=== PATIENT | male | born 2000 | race Caucasian/White ===

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

== ENCOUNTER 2020-11-18 22:37 | Emergency (ER) | payer OTHER, SELFPAY ==
[~2020-11-18] VITALS: Ht 182.9 cm; Wt 111.8 kg
[2020-11-18 22:37] VITALS: BP 156/81
[~2020-11-18 22:37] MED LIST: IBUP100S58 PO; METH78GE TP; PRED5CON PO
--- OUTSIDE RECORDS SUMMARY | 2020-11-18 22:43 | CCD ---
Author Author [facility] Organization [facility] Address Unknown Phone Unavailable Care Team Providers Care Team Facilitator Name Role Phone Jorge A, E Katy DDS Unavailable Unavailable Dille, E Katy DDS Unavailable Unavailable Dille, E Katy DDS Unavailable Unavailable Dille, E Katy DDS Unavailable Unavailable Re-disclosure Warning The records that you are about to access may contain information from federally-assisted alcohol or drug abuse programs. If such information is present, then the following federally mandated warning applies: This information has been disclosed to you from records protected by federal confidentiality rules (42 CFR part 2). The federal rules prohibit you from making any further disclosure of this information unless further disclosure is expressly permitted by the written consent of the person to whom it pertains or as otherwise permitted by 42 CFR part 2. A general authorization for the release of medical or other information is NOT sufficient for this purpose. The Federal rules restrict any use of the information to criminally investigate or prosecute any alcohol or drug abuse patient.The records that you are about to access may contain highly sensitive health information, the redisclosure of which is protected by Article 27-F of the [place] State Public Health law. If you continue you may have access to information: Regarding HIV / AIDS; Provided by facilities licensed or operated by the [facility] Office of Mental Health; or Provided by the [facility] Office for People With Developmental Disabilities. If such information is present, then the following [facility] mandated warning applies: This information has been disclosed to you from confidential records which are protected by state law. State law prohibits you from making any further disclosure of this information without the specific written consent of the person to whom it pertains, or as otherwise permitted by law. Any unauthorized further disclosure in violation of state law may result in a fine or prison sentence or both. A general authorization for the release of medical or other information is NOT sufficient authorization for further disc losure. Encounters Encounter Providers Location Date Indications Data Source(s ) Outpatient Attender: Katy Jules [facility] 04/05/2020 12:02:07 A M EDT [facility] Outpatient Attender: Katy Jules [facility] 03/14/2020 12:02:37 A M EDT [facility] Insurance Providers Payer name Policy type / Coverage type Policy ID Covered democrat ID Covered democrat's relationship to olivarez Policy [place] Plan Information SELF PAY ONLY [id number] SP [id number] Self Pay P [id number] S [id number] MEDICAID [id number] SP [id number] FENG [id number] SP [id number] Self Pay P UNAVAILABLE S UNAVAILA BLE Managed Care [place] P UNAVAILABLE S UNAVAILABLE Medicaid S UNAVAILABLE S UNAVAILA BLE D Managed Care [place] ([employer]) O [id number] S [id number] Medicaid Dental O [id number]
--- NOTE | 2020-11-18 23:19 | REPVR ---
PROCEDURE INFORMATION: Exam: XR Chest, 2 Views Exam date and time: 11/18/2020 11:13 PM Age: 20 years old Clinical indication: Chest pain TECHNIQUE: Imaging protocol: XR of the chest Views: 2 views. COMPARISON: No relevant prior studies available. FINDINGS: Lungs: Unremarkable. No consolidation. Pleural spaces: Unremarkable. No pleural effusion. No pneumothorax. Heart/Mediastinum: Unremarkable. No cardiomegaly. Bones/joints: Unremarkable. Soft tissues: There are moderately generous overlying soft tissues. IMPRESSION: Negative chest. Electronically signed by: John Rivera On 11/18/2020 23:19:29 PM
[2020-11-19 00:11] LABS: ALBUMIN 3.9 GM/DL (3.2-5.2); ALT/SGPT 38 U/L (12-78); BILIRUBIN,DIRECT 0.1 MG/DL (0.0-0.2); BILIRUBIN,TOTAL 0.3 MG/DL (0.2-1.0); BLOOD UREA NITROGEN 15 MG/DL (7-18); CALCIUM LEVEL 8.7 MG/DL (8.5-10.1); CARBON DIOXIDE LEVEL 30 MEQ/L (21-32); CHLORIDE LEVEL 105 MEQ/L (98-107); CK-MB VALUE MASS 3.9 NG/ML (<3.6); CPK CREATINE PHOSPHOKINASE 250 U/L (39-308); CREATININE FOR GFR 1.31 MG/DL (0.70-1.30); GLUCOSE, FASTING 97 MG/DL (70-100); MB/CK RELATIVE INDEX 1.56 (< OR =4); POTASSIUM SERUM 3.9 MEQ/L (3.5-5.1); SODIUM LEVEL 141 MEQ/L (136-145); TOTAL PROTEIN 7.3 GM/DL (6.4-8.2); TROPONIN I < 0.02 NG/ML (< 0.10)
[2020-11-19 00:17] LABS: BASO % 0.4 % (0.0-1.0); EOS # 0.4 10^3/uL (0.0-0.5); EOS % 5.3 % (0.0-3.0); HEMATOCRIT 46.1 % (42.0-52.0); HEMOGLOBIN 16.2 g/dl (13.5-17.5); LYMPH # 2.6 10^3/uL (1.5-5.0); LYMPH % 33.4 % (24.0-44.0); MEAN CORPUSCULAR HEMOGLOBIN 28.7 pg (27.0-33.0); MEAN CORPUSCULAR HGB CONC 35.1 g/dl (32.0-36.5); MEAN CORPUSCULAR VOLUME 81.6 fl (80.0-96.0); MONO # 0.6 10^3/uL (0.0-0.8); MONO % 8.3 % (0.0-5.0); NEUTROPHILS % 51.7 % (36.0-66.0); PLATELET COUNT, AUTOMATED 213 10^3/uL (150-450); RED BLOOD COUNT 5.65 10^6/uL (4.30-6.10); WHITE BLOOD COUNT 7.7 10^3/uL (4.0-10.0)
[2020-11-19] MEDS ORDERED: NAPR-885 PO (01:40)
[2020-11-19] MEDS ORDERED: NAPROXEN 250 MG TAB PO ONE (01:45)
--- OUTSIDE RECORDS SUMMARY | 2020-11-19 02:07 | CCD ---
Author Author [facility] Organization [facility] Address Unknown Phone Unavailable Care Team Providers Care Back Hand Name Role Phone Jorge A, E Katy [...] is protected by Article 27-F of the [place] State Public Health law. If you continue you may have access to information: Regarding HIV / AIDS; Provided by facilities licensed or operated by the [facility] Office of Mental Health; or Provided by the [facility] Office for People With Developmental Disabilities. If such information is present, then the following [facility] mandated warning applies: This information has [...] law may result in a fine or care home sentence or both. A general authorization for the release of medical or other information is NOT sufficient authorization for further disc losure. Encounters Encounter Providers Location Date Indications Data Source(s ) Outpatient Attender: Katy Jules [facility] 04/05/2020 12:02:07 A M EDT [facility] Outpatient Attender: Katy Jules [facility] 03/14/2020 12:02:37 A M EDT [facility] Insurance Providers Payer name Policy type / Coverage type Policy ID Covered green party ID Covered green party's relationship to olivarez Policy [place] Plan Information SELF PAY ONLY [id number] SP [id number] Self Pay P [id number] S [id number] MEDICAID [id number] SP [id number] FENG [id number] SP [id number] Self Pay P UNAVAILABLE S UNAVAILA BLE Managed Care [place] P UNAVAILABLE S UNAVAILABLE Medicaid S UNAVAILABLE S UNAVAILA BLE D Managed Care [place] ([employer]) O [id number] S [id number] Medicaid Dental O [id number]
--- NOTE | 2020-11-19 19:31 | ECGEPIP ---
[facility] - ED Test Date: 2020-11-18 Pat Name: RAMIRO NICOLAS Department: Room: - Gender: Male [place]: : 2000 Requested By: CARRIE Zaidi Order Number: [id number] Reading MD: Matthew Anand Measurements Intervals [place] Rate: 82 P: 50 WV: 139 QRS: 8 QRSD: 93 T: -1 QT: 344 QTc: 402 Interpretive Statements SINUS RHYTHM WITH SINUS ARRHYTHMIA INCOMPLETE RIGHT BUNDLE BRANCH BLOCK MODERATE VOLTAGE CRITERIA FOR LVH, CONSIDER NORMAL VARIANT BENIGN EARLY REPOLARIZATION NO PRIORS FOR COMPARISON Electronically Signed on 11-19-2020 19:31:36 EST by Matthew Anand
== END 2020-11-19 02:53 | disposition home or self-care (01) ==
LOC: M ED 22:37
DX: R07.89 Other chest pain (principal); R06.02 Shortness of breath

== ENCOUNTER → 2020-11-22 | Outpatient (REF) | payer OTHER, SELFPAY ==
[~2020-11-22] MED LIST changes: +NAPR-885 PO
[2020-11-22 18:40] LABS: APPEARANCE, URINE CLEAR (CLEAR); BACTERIA, URINE AUTO NEGATIVE (NEGATIVE); BILIRUBIN, URINE AUTO NEGATIVE (NEGATIVE); BLOOD, URINE BLOOD NEGATIVE (NEGATIVE); COLOR, URINE YELLOW (YELLOW); GLUCOSE, URINE (UA) AUTO NEGATIVE (NEGATIVE); KETONE, URINE AUTO NEGATIVE (NEGATIVE); LEUKOCYTE ESTERASE, URINE AUTO NEGATIVE (NEGATIVE); NITRITE, URINE AUTO NEGATIVE (NEGATIVE); PROTEIN, URINE AUTO NEGATIVE (NEGATIVE); RBC, URINE AUTO 1 /HPF (0-3); SPECIFIC GRAVITY URINE AUTO 1.011 (1.002-1.035); SQUAMOUS EPITHELIAL CELL UR AU 0 /HPF (0-6); UROBILINOGEN, URINE AUTO 0.2 mg/dL (0.0-2.0); WBC, URINE AUTO 0 /HPF (0-3)
[2020-11-22 19:30] LABS: GLUCOSE, FASTING 89 MG/DL (70-100)
[2020-11-22 19:31] LABS: BLOOD UREA NITROGEN 11 MG/DL (7-18); CALCIUM LEVEL 9.1 MG/DL (8.5-10.1); CARBON DIOXIDE LEVEL 30 MEQ/L (21-32); CHLORIDE LEVEL 104 MEQ/L (98-107); CHOLESTEROL LEVEL 138 MG/DL (<200); CHOLESTEROL RISK RATIO 3.365 (<5); CK-MB VALUE MASS 2.6 NG/ML (<3.6); CPK CREATINE PHOSPHOKINASE 241 U/L (39-308); CREATININE FOR GFR 1.07 MG/DL (0.70-1.30); FREE T4 0.94 NG/DL (0.78-1.33); HDL CHOLESTEROL 41 MG/DL (>40); LDL CHOLESTEROL 43 MG/DL (<100); MB/CK RELATIVE INDEX 1.08 (< OR =4); NON-HDL-C 97 MG/DL; NT-PRO BNP 15 PG/ML (<125); POTASSIUM SERUM 4.2 MEQ/L (3.5-5.1); SODIUM LEVEL 139 MEQ/L (136-145); TRIGLYCERIDES LEVEL 268 MG/DL (<150); TROPONIN I < 0.02 NG/ML (< 0.10)
[2020-11-22 20:40] LABS: HEMOGLOBIN A1c 4.8 %
== END ==
LOC: M SFHCPLAZ 14:50
PROVIDERS: ATTEND Nurse Practitioner Family
DX: R07.89 Other chest pain (principal); I10 Essential (primary) hypertension; Z13.228 Encounter for screening for other metabolic disorders

== ENCOUNTER → 2020-11-26 | Outpatient (CLI) | payer OTHER, SELFPAY | LOC: M LABSMTC 13:57 | PROVIDERS: ATTEND Family Medicine | DX: Z20.822 Contact with and (suspected) exposure to COVID-19 (principal) | CPT/HCPCS: C9803; U0003 ==

== ENCOUNTER → 2020-12-03 | Outpatient (REF) | payer OTHER, SELFPAY | LOC: M SFHCPLAZ 10:53 | PROVIDERS: ATTEND Nurse Practitioner Family | DX: R07.89 Other chest pain (principal) ==

== ENCOUNTER → 2020-12-16 | Outpatient (CLI) | payer OTHER ==
--- NOTE | 2020-12-16 13:09 | REPPI ---
INDICATION: ACUTE MIDLINE THORACIC BACK PAIN COMPARISON: CT dated 10/04/2019 TECHNIQUE: AP, lateral, bilateral oblique, and coned-down views of the lumbar spine. FINDINGS: Chronic bilateral L5 spondylolysis with grade 1 anterolisthesis similar to prior CT. Alignment and lordosis is otherwise maintained and normal. No further chronic degenerative changes are appreciated. No evidence for acute fracture/compression. IMPRESSION: Chronic L5 spondylolysis with spondylolisthesis. <Electronically signed by Earl Vargas > 12/16/20 [id number]
--- NOTE | 2020-12-16 17:49 | REPPI ---
INDICATION: ACUTE MIDLINE THORACIC BACK PAIN COMPARISON: CT dated 10/04/2019 TECHNIQUE: AP, lateral, and swimmers views. FINDINGS: Alignment and kyphosis is maintained. Vertebral bodies intact. No acute fracture / compression injury or subluxation. No degenerative changes. Paravertebral soft tissues are normal. IMPRESSION: Normal thoracic spine series. <Electronically signed by Earl Vargas > 12/16/20 [id number]
== END ==
LOC: M PLAIMG 12:35
PROVIDERS: ATTEND Physician Assistant
DX: M54.6 Pain in thoracic spine (principal); M54.5 Low back pain